=== PATIENT | female | born 1980 | race Two or more races ===

== ENCOUNTER 2023-10-09 14:23 | Outpatient (AMB) | payer OTHER, SELFPAY ==
--- NOTE | 2023-10-09 14:33 | MHC.OFFVIS ---
Intake Visit Reasons: recurrent UTIs, urgency Intake Note: New Patient is present for Recurrent Urinary Tract Infections/Urgency Patient states that her last Uti was 2 months ago, when she has a active infections her symptoms only include frequency Patient states that Last year she had back surgery and since then she states her bladder is not the same it takes hours for her to urinate after drinking plenty of fluids Allergies ibuprofen Allergy (Severe, Verified 10/09/23 14:37) airway compromise NSAIDS (Non-Steroidal Anti-Inflamma Allergy (Intermediate, Verified 10/09/23 14:37) Unknown Medication List - Last Reconciled 10/09/23 by Jose Parkinson MD albuterol sulfate 2.5 mg inhalation Q6H apixaban (Eliquis) 5 mg PO BID apixaban (Eliquis) 2.5 mg PO BID clonidine HCl ER 0.1 mg PO BEDTIME gabapentin 100 mg PO TID omeprazole 20 mg PO DAILY quetiapine 400 mg PO BID tamsulosin 0.4 mg PO BEDTIME 30 days HPI Comments Details: Leah is a pleasant female. She is a patient of Dr. Aguilar. 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 Pulmonary embolism Dyspnea Diaphragm dysfunction Bipolar disorder Bilateral chronic knee pain Atypical squamous cell changes of undetermined significance (ASCUS) on cervical cytology with positive high risk human papilloma virus (HPV) Chronic urinary tract infection GERD (gastroesophageal reflux disease) Recurrent UTI Surgical History (Updated 10/09/23 @ 14:53 by ERNA Moya) History of back surgery Review of Systems Const Denies chills and Denies fever(s) Card Reports no additional complaints and Denies syncope Resp Denies cough GI Denies abdominal pain and Denies heartburn Reports as per HPI and Denies change in libido Neuro Denies syncope Psych Denies change in libido Endo Denies change in libido Physical Exam Const General: cooperative, healthy appearing, comfortable and no acute distress Orientation/consciousness: patient oriented x3 HEENT Face and sinus: Yes normal facial exam Mouth: moist mucous membranes Neck Neck: Yes normal visual inspection, Yes full ROM and Yes trachea midline Chest Chest palpation & inspection: normal inspection of the chest Resp Effort & Inspection: normal respiratory effort, able to speak in complete sentences and no respiratory distress GI Inspection: Yes normal to inspection Back/Spine/Pelvis Cervical Spine: normal cervical lordosis Thoracic/Lumbar Spine: thoracic and lumbar spine normal to inspection Skin General skin exam: no rashes or lesions noted Neuro General: patient oriented x3, gait normal, tone normal and moves all extremities Extrem General: Yes normal to inspection and Yes capillary refill normal Assessment & Plan Assessment & Plan (1) Urinary retention with incomplete bladder emptying: Code(s): R33.9 - Retention of urine, unspecified Category: Medical (2) Weak urinary stream: Code(s): R39.12 - Poor urinary stream Category: Medical Plan Plan urodynamics Medications: New tamsulosin 0.4 mg PO BEDTIME 30 caps 1RF 30 days R35.1 - Nocturia, N40.1 - Benign prostatic hyperplasia with lower urinary tract symptoms Patient Instructions: Imaging studies, laboratory and physical exam results were discussed and reviewed in detail. No major barriers to patient understanding were identified. An opportunity to ask questions regarding the treatment plan was provided. All questions were answered. The patient expressed understanding and agreement with the above treatment plan. The patient is aware they should contact our office by phone for worsening of their current condition or the appearance of new urologic symptoms. Compliance is encouraged with any medications and followup testing that is ordered. It is a privilege to participate in the urologic care of your patient. If you have any questions or concerns regarding treatment for the above conditions, or other urologic issues, please do not hesitate to contact me. The office telephone contact is [phone]. This note is constructed using voice recognition software. While every effort has been made to ensure accuracy water project manager errors may have been included. Yours sincerely, Dr Jose Parkinson MD, [facility] - Urology Providers of Expert, Compassionate Care for the Genitourinary System Coding Level of Care Code New Pt Level 4 (13517) Diagnoses Urinary retention with incomplete bladder emptying R33.9 Weak urinary stream R39.12
== END 2023-10-09 15:30 | disposition home or self-care (01) ==
PROVIDERS: PCP Student in an Organized Health Care Education/Training Program; Visit Provider Urology
DX: R33.9 Retention of urine, unspecified (principal); R39.12 Poor urinary stream
CPT/HCPCS: 99204

== ENCOUNTER → 2023-10-09 14:23 | Outpatient (BNVA) | payer OTHER, SELFPAY | PROVIDERS: PCP Student in an Organized Health Care Education/Training Program; Visit Provider Urology | DX: R33.9 Retention of urine, unspecified (principal); R39.12 Poor urinary stream | CPT/HCPCS: 99202 ==